=== PATIENT | female | born 1995 | race Caucasian/White ===

== ENCOUNTER 2016-07-29 03:05 | Emergency (ER) | payer MEDICAID ==
[~2016-07-29] VITALS: Ht 157.5 cm; Wt 63.4 kg
[~2016-07-29 03:05] MED LIST: AMOX500T PO; PREN29TA PO
[2016-07-29 03:15] VITALS: BP 107/71; PULSE 114; RESP 18; TEMP 98.8; O2SAT 99
--- NOTE | 2016-07-29 03:55 | PD ---
HPI Chief Complaint: Cold / Flu Symptoms Time Seen by Provider: 03:39 Travel History International Travel<30 days: No Contact w/Intl Traveler<30days: No Traveled to known affect area: No History of Present Illness HPI The patient is a 21-year-old female that has had a nonproductive cough for 4 days. She states she coughs so frequently that she vomits at times. She is 18 weeks . 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 She states she recorded her temperature at home had 100, she has no fever here. She denies any vaginal bleeding. 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 She does have a frequent cough. The cough is nonproductive. Her vital signs show heart rate of 114 but otherwise are normal for . SKIN: Warm and dry. No skin rash is seen. HEAD: Atraumatic. Normocephalic. EYES: Pupils equal and round. No scleral icterus. No injection or drainage. ENT: No nasal bleeding or discharge. Mucous membranes pink and moist. The throat is clear without exudate, abscess or erythema. The tympanic membranes are clear. NECK: Trachea midline. No JVD. CARDIOVASCULAR: Regular rate and rhythm. No murmur appreciated. RESPIRATORY: No accessory muscle use. Clear to auscultation. Breath sounds equal bilaterally. No wheezes or rhonchi are heard anywhere. GASTROINTESTINAL: Abdomen soft, non-tender, nondistended. Hepatic and splenic margins not palpable. MUSCULOSKELETAL: No obvious deformities. No clubbing. No cyanosis. No edema. NEUROLOGICAL: Awake and alert. No obvious cranial nerve deficits. Motor grossly within normal limits. Normal speech. PSYCHIATRIC: Appropriate mood and affect; insight and judgment normal. Data Data Last Documented VS Vital Signs Date Time Temp Pulse Resp B/P Pulse Ox O2 Delivery O2 Flow Rate FiO2 07/29/16 03:24 18 07/29/16 03:15 98.8 114 107/71 99 Orders Influenzae A/B Antigen (07/29/16 03:37) Ed Urine Pregnancytest Poc (07/29/16 03:59) [facility] Medical Decision Making Medical Screen Exam Complete: Yes Emergency Medical Condition: Yes Medical Record Reviewed: Yes Differential Diagnosis Bronchitis, pneumonia, viral upper respiratory infection, ear infection, pharyngitis Narrative Course The patient appears to have a viral upper respiratory infection. I cannot find any clinical evidence of bacterial infection. Plan: The patient will be given Benadryl for the cough and she will also get Zofran should she develop nausea.. She can try an [id number]-wvk-[id number] cough syrup but not with any decongestant. Benadryl is category B and so Zofran. 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 Other medications may be considered now. Diagnosis Primary Impression: Viral upper respiratory infection Additional Impression: Intrauterine Additional Instructions: The Benadryl makes you sleepy and can help him sleep. It also suppresses a cough. Zofran is for nausea. Both are category B. He should follow-up with your manager clinical applications, he may allow other medications that may work better. Rest, liquids are the main stay of fighting a virus. Med/Other Pt SpecificInfo: Prescription(s) given Scripts Ondansetron (Zofran)4 Mg Tab4 Mg PO Q6HR PRN (NAUSEA OR VOMITING) #30 TAB Ref 0 Prov:Boni Souza MD 07/29/16 Diphenhydramine (Benadryl Allergy)25 Mg Tab25 Mg PO Q6H PRN (cough) #30 TAB Ref 0 Prov:Boni Souza MD 07/29/16 Disposition: 01 DISCHARGE HOME Condition: Stable Boni Souza MD Jul 29, 2016 03:55
[2016-07-29] MEDS ORDERED: ZOFR4TAB PO (04:07)
[2016-07-29] MEDS ORDERED: BENA25TA3 PO (04:07)
[2016-07-29] MEDS ORDERED: diphenhydrAMINE HCL 25 MG CAP PO ONE (04:15)
[2016-07-29] MEDS ORDERED: ACETAMINOPHEN 325 MG TAB PO ONE (04:15)
== END 2016-07-29 04:44 | disposition home or self-care (01) ==
LOC: PHED 03:05
DX: O26.92 Pregnancy related conditions, unspecified, second trimester (principal); O99.332 Smoking (tobacco) complicating pregnancy, second trimester; J06.9 Acute upper respiratory infection, unspecified; F17.210 Nicotine dependence, cigarettes, uncomplicated; Z3A.18 18 weeks gestation of pregnancy
CPT/HCPCS: 84703; 87804; 99283

== ENCOUNTER 2016-08-29 09:50 | Emergency (ER) | payer MEDICAID ==
[~2016-08-29 09:50] MED LIST changes: +BENA25TA3 PO; +ZOFR4TAB PO
--- NOTE | 2016-08-29 10:38 | PD ---
HPI Chief Complaint vaginal spotting Date Seen: Aug 29, 2016 Time Seen: 10:41 (Alejandrina Nagel MD R1) Travel History International Travel<30 Days: No Contact w/Intl Traveler<30Days: No Known Affected Area: No (Alejandrina Nagel MD R1) History of Present Illness HPI 21-year-old at 22 and 4/7 weeks gestation, EDC 12/29/16, who presents to the ED after a one-day history of vaginal spotting. She gets care through [facility]. She states the vaginal spotting started yesterday, and she has had some nausea and vomiting since that time as well. The spotting itself has been continuous, requiring tissue to be placed in the underwear and only is replaced when she goes to void. Dysuria is also noted since yesterday. She denies fevers, chills, shortness of breath. She does not have diarrhea. She is eating without difficulty. She reports that she has had unremarkable labs at [facility], denying specifically STIs ever in the past. She denies history of UTI. She did have sexual activity recently. She denies leakage of fluid, vaginal bleeding, and contractions. She feels baby moving regularly. She denies STONER/N/V/D/fever/sick contacts/SOB/calf pain/dizziness/seeing spots. She is due for follow-up with her DENTAL TECH at [facility]. Cancel her appointment yesterday She was out and about running errands and going to see security officer. She also had to work yesterday evening precluding her visit at [facility]. Also states [employer] is closer to her. (Alejandrina Nagel MD R1) History Past Medical History Medical History: Denies Significant Hx (Alejandrina Nagel MD R1) Obstetric History Obstetric History G1: 2013, full-time, 9 pounds, was using heroin and cocaine at that time. ( Alejandrina Nagel MD R1) Past Surgical History Surgical History: No Previous Surgery (Alejandrina Nagel MD R1) Family History Family History: Negative (denies any family history of coagulopathies) ( Alejandrina Nagel MD R1) Social History Alcohol Use: No Tobacco Use: Yes (2 packs per day early in , now 3-4 cigarettes a day) Substance Abuse: No (last reported use of heroin and cocaine July 2015) ( Alejadnrina Nagel MD R1) Allergies-Medications (Allergen,Severity, Reaction): Coded Allergies: No Known Allergies (Unverified , 05/31/16) Home Meds Active Scripts Ondansetron (Zofran)4 Mg Tab4 Mg PO Q6HR PRN (NAUSEA OR VOMITING) #30 TAB Ref 0 Prov:Boni Souza MD 07/29/16 Diphenhydramine (Benadryl Allergy)25 Mg Tab25 Mg PO Q6H PRN (cough) #30 TAB Ref 0 Prov:Boni Souza MD 07/29/16 Amoxicillin 500 Mg Sar942 Mg PO TID 7 Days Ref 0 Prov:Jet Olmedo MD 05/31/16 Reported Medications Vit-Iron Carbonyl ( Plus Iron 29-1 mg)1 Tab Tab1 Tab PO DAILY #30 TAB Ref 0 05/31/16 Review of Systems Except as stated in HPI: all other systems reviewed are Neg (Alejandrina Nagel MD R1) Physical Exam Narrative GENERAL: Well-nourished, well-developed female in no obvious distress. SKIN: Warm and dry. Multiple scattered tattoos on the extremities. No rashes, faint ecchymosis noted on medial right thigh. HEAD: Normocephalic and atraumatic. EYES: No scleral icterus. No injection or drainage. ENT: No nasal drainage noted. Mucous membranes pink. Airway patent. Mucous members are moist. CARDIOVASCULAR: Regular rate and rhythm without murmurs, gallops, or rubs. RESPIRATORY: Breath sounds equal bilaterally. No accessory muscle use. No crackles or wheezes. ABDOMEN/GI: Abdomen gravid to approximate 20 weeks, non-tender, bowel sounds present, no rebound, no guarding GENITOURINARY: Sterile speculum exam performed. External Genitalia: intact and normal in appearance Cervix: On visualization, is closed, without lesions. Normal physiologic discharge. There is no evidence of bleeding from the os or any vaginal lesions. FHT's: Heart rate 150 at baseline, moderate variability, no decelerations. No obvious reactive trace blood patient is at 22 weeks Contractions: None EXTREMITIES: No cyanosis or edema. BACK: Nontender without obvious deformity. No CVA tenderness. NEUROLOGICAL: Awake and alert. Motor and sensory grossly within normal limits. Five out of 5 muscle strength in all muscle groups. Normal speech. (Alejandrina Nagel MD R1) Data Data Vital Signs Reviewed: Yes (90 8.2F, RR 20, P 90, BP 104/55) Orders Vital Signs (Adult) .ON ADMISSION (08/29/16 10:35) ^ Labor Status (08/29/16 10:35) Urinalysis - C+S If Indicated (08/29/16 10:35) (Alejandrina Nagel MD R1) MDM Medical Record Reviewed: No ( care [facility]) Interpretation(s) 21-year-old at 22 and 4/7 weeks presenting with history of vaginal spotting. Exam does not show any vaginal bleeding but patient notes dysuria. Intrauterine at 22 and 4/7 weeks: Category 1 tracing Routine care with [facility] She canceled her appointment yesterday, patient was counseled to follow-up with her OB HECTOR By mouth hydration Dysuria: Afebrile, normal vital signs UA sent, will call patient with results, urine culture as necessary SDW Dr. Hoff Plan Discharge home, patient to follow-up with her OB. UA sent, will follow up results and notify patient. (Alejandrina Nagel MD R1) Diagnosis Diagnosis: Primary Impression: 23 weeks gestation of Additional Impressions: Dysuria Antepartum bleeding, second trimester Disposition: DISCHARGE HOME Condition: Stable Patient Instructions: Urinary Tract Infection in (ED) Collaborating MD Comments Patient at 22-23 weeks gestation here for vaginal spotting. Previous coitus approx 24 prior to spotting. Exam notes no vaginal bleeding with closed cervix. Sonogram done at 17 weeks gestation was normal and had one scheduled during her visit yesterday. Will treat pt for UTI given her recurrent complaints of dysuria. UA and culture were sent. Follow up with outpatient OB provider as scheduled and complete full course of antibiotics. (Melania Hoff MD) Alejandrina Nagel MD R1 Aug 29, 2016 10:38 Melania Hoff MD Aug 29, 2016 11:05
[2016-08-29 11:06] LABS: BLOOD, URINE TRACE (NEG); COMMENT (UR) CULT NOT INDICATED; CULTURE IF INDICATED CULT NOT INDICATED; GLUCOSE,URINE NEG (NEG); HYALINE CAST, URINE 1 /lpf (RARE); KETONE, URINE NEG (NEG); MUCUS URINE MOD /lpf (OCC); NITRITE,URINE NEG (NEG); SQUAMOUS EPITHELIAL CELL URINE 12 /hpf (0-5); URINE COLOR YELLOW (YELLW/STRAW)
--- NOTE | 2016-08-29 15:45 | PD ---
History of Present Illness History of Present Illness Addendum: Patient was called at documented home #[phone] with an update of UA findings. UA was significant for large leukocyte esterase, moderate mucus, 6 WBCs. The lab typically does not reflex to culture without greater than or equal to 8 WBCs, therefore urine culture was ordered separately. Patient was notified of UA results and told that culture will be pending. Prescription for Macrobid 100 mg by mouth every 12 hours for 7 days [facility] [address] [place] [address] at patient's request. The number called was . Patient was counseled to take the medication as prescribed, and again counseled to follow-up with her OB, she expressed that she would and agreed with above-documented plan of action. (Alejandrina Nagel MD R1) Attestation agreee with plan for treatment of UTI (Melania Hoff MD) Alejandrina Nagel MD R1 Aug 29, 2016 15:45 Melania Hoff MD Aug 30, 2016 09:21
== END 2016-08-29 10:53 | disposition home or self-care (01) ==
LOC: HOBED 09:50
DX: O46.92 Antepartum hemorrhage, unspecified, second trimester (principal); R30.0 Dysuria; Z72.0 Tobacco use; Z3A.23 23 weeks gestation of pregnancy
CPT/HCPCS: 81001; 87086; 99284